=== PATIENT | male | born 1960 | race Caucasian/White ===

== ENCOUNTER 2016-07-24 20:02 | Inpatient (IN) | payer MEDICARE, OTHER ==
--- NOTE | ~2016-07-24 | DS ---
Discharge Summary [address] [facility] [place]. [address] NAME: CARMEL OJEDA : 60 STATUS : DIS IN PAT#: [id number] AGE: 56 ADM/REG DATE : 07/24/16 MR#: [id number] REPORT SERV DATE: 07/28/16 DICTATED BY: USAMA SNYDER DATE: 07/27/16 REPORT STATUS : Draft TRANSCRIBED BY: MODDev DATE: 07/27/16 ADMISSION DATE: 07/24/2016 DISCHARGE DATE: 07/27/2016 DIAGNOSES: 1. Hypoxic respiratory failure. Acute on chronic. 2. Chronic obstructive pulmonary disease exacerbation. 3. Coronary artery disease, status post history of coronary artery bypass graft. 4. History of hypertension. ATTENDING CRITICAL CARE: 1. Dr. Efren Soni and Dr. Kat and Dr. Jessica Gracia. 2. Hospitalists, Dr. Snyder. ELECTRIC MELT OPERATOR: Pulmonary, Dr. Perales. HOSPITAL COURSE: This is a 56 years old male with a past medical history of COPD with home O2 at 5 L and history with coronary artery disease, status post CABG and hypertension, recently discharged from the hospital, but returned with acute on chronic hypoxic respiratory failure with some shortness of breath and dyspnea on exertion. The patient was placed on BiPAP in the ER and Critical Care was consulted. The patient, per his wishes, was DNR and was adamant about no intubation and no CPR. He was admitted to Critical Care and placed in ICU on continuous BiPAP. The patient was diuresed, also placed on bronchodilators and steroid and later was transitioned to high oxygen with Vapotherm. The patient remained on high amount of oxygen with Vapotherm at 30 L and was a later transferred out of the ICU to the Hospitalist Service, and the patient was cared by the Hospitalist Service, initiating on 07/27/2016. The patient's respiratory status was worsened and maxed out on the Vapotherm at 40 L and required to be placed back on continuing with BiPAP. It was discussed with the patient, concerning his code status, but the patient was very adamant about no intubation and no CPR, and the patient was very adamant about remaining DNR. However, it was explained to the patient that the plan was to transfer to IMCU and to continue with care, also his steroid was increased as well as diuretic and also associate quality engineer Dr. Perales was consulted to assist with the patient's care. However, before the patient could be transferred to [facility], the patient stated he did not want to transfer and want to stay in a regular bed with his family at his bedside. His mother, father, and fiance were present at that time. The patient also discussed with the Pulmonary Service that he wished to remain comfortable and stop his care. However, he did consent initially to continue with his BiPAP. He also stated that he was willing to have hospice to be consulted. Hospice was consulted. Also, the patient was complaining of pain and discomfort and was given medication as well. He continued to have respiratory distress, and the patient later stated he wished to be taken off BiPAP to be more comfortable and that to completely withdraw care. The patient had also discussion with the hospitalist as well as Pulmonary Service with Dr. Perales. Therefore, BiPAP was removed by Pulmonary Service, and the patient was made completely at comfort per his wishes, and the patient was alert and oriented when making decisions, and also, family were at bedside during that time. The patient was later pronounced prior to be seen by hospice. Discharge Summary [address] [place]. [address] NAME: CARMEL OJEDA : 60 STATUS : DIS IN PAT#: [id number] AGE: 56 ADM/REG DATE : 07/24/16 MR#: [id number] REPORT SERV DATE: 07/28/16 DICTATED BY: USAMA SNYDER DATE: 07/27/16 REPORT STATUS : Draft TRANSCRIBED BY: FELIX DATE: 07/27/16 [facility]/FELIX Usama Snyder M.D. / [id number] CC: Efren Soni M.D.
--- NOTE | ~2016-07-24 | HP ---
History And Physical [address] [place]. [address] NAME: CARMEL OJEDA : 60 STATUS : ADM IN [facility]#: [id number] AGE: 56 ADM/REG DATE : 07/24/16 MR#: [id number] REPORT SERV DATE: 07/24/16 DICTATED BY: KARINA LOPEZ DATE: 07/24/16 REPORT STATUS : Draft TRANSCRIBED BY: FELIX DATE: 07/24/16 DATE OF ADMISSION: 07/24/2016 REASON FOR ADMISSION: Acute hypoxemic respiratory failure. HISTORY OF PRESENT ILLNESS: Mr. Ojeda is well known to our service having been here three times the past two months. He is a 56-year-old man with significant COPD with tobacco abuse up until the time of his recent hospitalization as well as coronary artery disease, status post recent coronary artery bypass graft surgery, who had been back home, but developed worsening cough, worsening dyspnea, and was seen at an outside hospital, where he was started on BiPAP. He reinforced once again that he does not want to be intubated, does not want heroic measures, and was transferred for BiPAP, pulmonary consult, and further monitoring of his chronic diseases. PAST MEDICAL HISTORY: Significant for COPD with tobacco abuse up until his recent hospitalizations earlier this year, coronary artery disease, ischemic cardiomyopathy, hypertension, and hypercholesterolemia. SOCIAL HISTORY: Significant for recent tobacco abuse. He has been on nicotine patch since his most recent discharge. FAMILY HISTORY: Noncontributory given his established cardiac and pulmonary disease. REVIEW OF SYSTEMS: Review of 10 systems was performed with the patient is positive for what was noted above. PHYSICAL EXAMINATION: GENERAL: He is chronically ill appearing, appears older than stated age. HEENT: Normocephalic and atraumatic. NECK: Supple. No lymphadenopathy. No JVD. CHEST: Symmetric with good expansion bilaterally. LUNGS: Have coarse breath sounds with a prolonged expiratory phase and scant crackles. CARDIOVASCULAR: He has S1 and S2, which are regular rate and rhythm. ABDOMEN: Benign. EXTREMITIES: He has no edema. No clubbing. No cyanosis. ASSESSMENT AND PLAN: Respiratory failure. He has acute on chronic hypoxemic respiratory failure. White blood cell count was slightly elevated at the outside hospital, though renal function was normal, so we have started him on aggressive diuresis and aggressive medical therapy for acute exacerbation of chronic obstructive pulmonary disease with systemic antibiotics and steroids. He will receive aggressive bronchodilator therapy, and we will continue with BiPAP therapy. The patient has requested that he does not want to be intubated , does not want heroic measures, and had been a DNR on his last admission, so these wishes are consistent with his previously expressed wishes, so he will remain a do not intubate and do not resuscitate. Care was discussed with the patient upon arrival. History And Physical [address] [address] NAME: CARMEL OJEDA : 60 STATUS : ADM IN PAT#: [id number] AGE: 56 ADM/REG DATE : 07/24/16 MR#: [id number] REPORT SERV DATE: 07/24/16 DICTATED BY: KARINA LOPEZ DATE: 07/24/16 REPORT STATUS : Draft TRANSCRIBED BY: FELIX DATE: 07/24/16 [facility]/FELIX Karina Lopez M.D. / [id number] CC: Karina Lopez M.D.
[~2016-07-24 20:02] MED LIST: AUG875 PO; BREO ELLIPTA INH; DULERA 200 MCG/13 GM INH; GOODY'S EX-STR1 EAC1 PO; HABIT21 TOP; HALF81 PO; L20 PO; LIPITOR40 PO; LOP50 PO; NORCO1 TA1 PO; PACERONE200 MG PO; PERCOCET1 TA2 PO; PRIN10 PO; PROAIR HFA INH; SPIRIVA INH
[2016-07-25 05:35] LABS: CALCIUM, SERUM 7.5 MG/DL (8.5-10.4); CHLORIDE, SERUM 103 MMOL/L (96-112); CO2 (CARBON DIOXIDE) 29 MMOL/L (24-34); CREATININE 0.66 MG/DL (0.70-1.30); GFR AFRICAN AMERICAN 125 ML/MIN (>=60); GFR NON AFRICAN AMERICAN 108 ML/MIN (>=60); SODIUM, SERUM 141 MMOL/L (135-148)
[2016-07-25 05:37] LABS: BUN (BLOOD UREA NITROGEN) 10 MG/DL (6-23); GLUCOSE, SERUM 133 MG/DL (60-99); POTASSIUM, SERUM 2.8 MMOL/L (3.5-5.3)
[2016-07-25 05:43] LABS: BASOPHILS 0.1 %; BASOPHILS ABSOLUTE 0.01 10/3/uL (0.0-0.16); EOSINOPHILS 0.1 %; EOSINOPHILS ABSOLUTE 0.01 10/3/uL (0.0-0.53); HEMATOCRIT 27.9 % (40.0-51.0); HEMOGLOBIN 8.7 g/dL (13.6-17.8); IMMATURE GRANULOCYTES 0.8 %; IMMATURE GRANULOCYTES ABSOLUTE 0.15 10/3/uL (0.0-0.11); LYMPHOCYTES 3.1 %; LYMPHOCYTES ABSOLUTE 0.58 10/3/uL (0.67-4.30); MEAN CORPUS HGB CONC 31.2 g/dL (32.0-36.0); MEAN CORPUSCULAR HEMOGLOB 25.4 pg (26.0-34.0); MEAN PLATELET VOLUME 9.1 fL (9.2-13.0); MONOCYTES 2.3 %; MONOCYTES ABSOLUTE 0.42 10/3/uL (0.21-1.20); NEUTROPHILS 93.6 %; NEUTROPHILS ABSOLUTE 17.36 10/3/uL (2.02-8.40); RED CELL COUNT 3.42 10/6/uL (4.7-6.1); WHITE BLOOD CELLS 18.5 10/3/uL (4.5-10.5)
[2016-07-25 05:50] LABS: MANUAL DIFF NO %; MEAN CORPUSCULAR VOLUME 81.6 fL (80-100); PLATELET COUNT 201 10/3/uL (150-400)
[2016-07-25 06:42] LABS: PROCALCITONIN 0.33 ng/mL (<0.5)
[2016-07-25 17:04] LABS: CALCIUM, SERUM 7.6 MG/DL (8.5-10.4); CHLORIDE, SERUM 103 MMOL/L (96-112); CO2 (CARBON DIOXIDE) 27 MMOL/L (24-34); CREATININE 1.01 MG/DL (0.70-1.30); GFR AFRICAN AMERICAN 96 ML/MIN (>=60); GFR NON AFRICAN AMERICAN 83 ML/MIN (>=60); SODIUM, SERUM 138 MMOL/L (135-148)
[2016-07-25 17:05] LABS: BUN (BLOOD UREA NITROGEN) 18 MG/DL (6-23); GLUCOSE, SERUM 217 MG/DL (60-99); PHOSPHORUS, SERUM 1.8 MG/DL (2.5-4.5); POTASSIUM, SERUM 3.8 MMOL/L (3.5-5.3)
[2016-07-26 04:00] LABS: BASOPHILS 0 %; BASOPHILS ABSOLUTE 0.01 10/3/uL (0.0-0.16); EOSINOPHILS 0.3 %; EOSINOPHILS ABSOLUTE 0.07 10/3/uL (0.0-0.53); HEMATOCRIT 26.5 % (40.0-51.0); HEMOGLOBIN 8.2 g/dL (13.6-17.8); IMMATURE GRANULOCYTES 0.6 %; IMMATURE GRANULOCYTES ABSOLUTE 0.12 10/3/uL (0.0-0.11); LYMPHOCYTES 5.3 %; LYMPHOCYTES ABSOLUTE 1.11 10/3/uL (0.67-4.30); MANUAL DIFF NO %; MEAN CORPUS HGB CONC 30.9 g/dL (32.0-36.0); MEAN CORPUSCULAR HEMOGLOB 25.5 pg (26.0-34.0); MEAN CORPUSCULAR VOLUME 82.3 fL (80-100); MEAN PLATELET VOLUME 8.6 fL (9.2-13.0); MONOCYTES 3.8 %; NEUTROPHILS ABSOLUTE 18.95 10/3/uL (2.02-8.40); PLATELET COUNT 185 10/3/uL (150-400); RBC DISTRIBUTION WIDTH 20.3 % (12.0-16.0); RED CELL COUNT 3.22 10/6/uL (4.7-6.1); WHITE BLOOD CELLS 21.1 10/3/uL (4.5-10.5)
[2016-07-26 04:20] LABS: ALBUMIN 1.8 G/DL (3.5-5.0); CALCIUM, SERUM 7.3 MG/DL (8.5-10.4); CHLORIDE, SERUM 103 MMOL/L (96-112); CO2 (CARBON DIOXIDE) 28 MMOL/L (24-34); CREATININE 1.14 MG/DL (0.70-1.30); GFR AFRICAN AMERICAN 83 ML/MIN (>=60); GFR NON AFRICAN AMERICAN 71 ML/MIN (>=60); SODIUM, SERUM 141 MMOL/L (135-148)
[2016-07-26 04:22] LABS: BUN (BLOOD UREA NITROGEN) 23 MG/DL (6-23); GLUCOSE, SERUM 131 MG/DL (60-99); PHOSPHORUS, SERUM 4.9 MG/DL (2.5-4.5); POTASSIUM, SERUM 4.6 MMOL/L (3.5-5.3)
[2016-07-26 05:13] LABS: PROCALCITONIN 0.39 ng/mL (<0.5)
[2016-07-27 06:06] LABS: BASOPHILS 0.1 %; BASOPHILS ABSOLUTE 0.01 10/3/uL (0.0-0.16); EOSINOPHILS 0.3 %; EOSINOPHILS ABSOLUTE 0.05 10/3/uL (0.0-0.53); HEMATOCRIT 26.2 % (40.0-51.0); HEMOGLOBIN 7.8 g/dL (13.6-17.8); IMMATURE GRANULOCYTES 0.4 %; IMMATURE GRANULOCYTES ABSOLUTE 0.08 10/3/uL (0.0-0.11); LYMPHOCYTES 4.9 %; LYMPHOCYTES ABSOLUTE 0.88 10/3/uL (0.67-4.30); MEAN CORPUS HGB CONC 29.8 g/dL (32.0-36.0); MEAN CORPUSCULAR HEMOGLOB 24.6 pg (26.0-34.0); MEAN CORPUSCULAR VOLUME 82.6 fL (80-100); MEAN PLATELET VOLUME 9.3 fL (9.2-13.0); MONOCYTES 3.4 %; MONOCYTES ABSOLUTE 0.61 10/3/uL (0.21-1.20); NEUTROPHILS 90.9 %; NEUTROPHILS ABSOLUTE 16.41 10/3/uL (2.02-8.40); PLATELET COUNT 207 10/3/uL (150-400); RBC DISTRIBUTION WIDTH 20.1 % (12.0-16.0); RED CELL COUNT 3.17 10/6/uL (4.7-6.1)
[2016-07-27 06:07] LABS: MANUAL DIFF NO %
[2016-07-27 06:28] LABS: BUN (BLOOD UREA NITROGEN) 19 MG/DL (6-23); CALCIUM, SERUM 8.1 MG/DL (8.5-10.4); CHLORIDE, SERUM 107 MMOL/L (96-112); CO2 (CARBON DIOXIDE) 30 MMOL/L (24-34); CREATININE 0.52 MG/DL (0.70-1.30); GFR AFRICAN AMERICAN 138 ML/MIN (>=60); GFR NON AFRICAN AMERICAN 119 ML/MIN (>=60); GLUCOSE, SERUM 96 MG/DL (60-99); POTASSIUM, SERUM 4.5 MMOL/L (3.5-5.3); SODIUM, SERUM 143 MMOL/L (135-148)
[2016-07-27 07:00] LABS: PROCALCITONIN 0.12 ng/mL (<0.5)
[2016-07-27 10:11] LABS: BE (BASE EXCESS) 1.6 MEQ/L (0 +/- 2.5); CARBOXYHEMOGLOBIN 1.2 % (0-3); HCO3 (ACTUAL BICARBONATE) 25.9 MEQ/L (23-27); INSTRUMENT SERIAL # 35151; METHEMOGLOBIN 0.3 % (0-3); O2 CONTENT 11.7 VOL% (18-24); PCO2 (CO2 TENSION) 39 MMHG (35-45); PO2 (O2 TENSION) 66 MMHG (79-93); SAMPLE Arterial; pH 7.44 (7.37-7.43)
[2016-07-27 10:12] LABS: ALLENS TEST Pos; BIPAP 16/6 cm.H2O; OPERATOR ID 13624
== END 2016-07-27 17:44 | disposition expired | DRG 291 ==
LOC: CCU 20:02 → 7NO 07-26 17:36
PROVIDERS: Internal Medicine Critical Care Medicine; Internal Medicine Pulmonary Disease
PROC: 5A09357 Assistance with Respiratory Ventilation, Less than 24 Consecutive Hours, Continuous Positive Airway Pressure (ICD-10-PCS; principal; 2016-07-24)
DX: I50.43 Acute on chronic combined systolic (congestive) and diastolic (congestive) heart failure (principal); J96.21 Acute and chronic respiratory failure with hypoxia; Z95.1 Presence of aortocoronary bypass graft; J44.1 Chronic obstructive pulmonary disease with (acute) exacerbation; I25.10 Atherosclerotic heart disease of native coronary artery without angina pectoris; I25.5 Ischemic cardiomyopathy; I10 Essential (primary) hypertension; E78.00 Pure hypercholesterolemia, unspecified; F17.210 Nicotine dependence, cigarettes, uncomplicated; Z66 Do not resuscitate; Z95.810 Presence of automatic (implantable) cardiac defibrillator; Z51.5 Encounter for palliative care
CPT/HCPCS: 36600; 71010; 80048; 80069; 82805; 83735; 83880; 84145; 85025; 87641; 93005; 94640; 94660; 97162-GP; 97166-GO; A9270-GY; C9113; J0456; J2920; J2930